=== PATIENT | male | born 1995 | race Caucasian/White ===

== ENCOUNTER → 2016-09-07 | Outpatient (CLI) | payer BC | LOC: RAD 10:14 | PROVIDERS: ATTEND Physician Assistant | DX: R51 Headache (principal) | CPT/HCPCS: 70450 ==

== ENCOUNTER 2017-02-12 00:01 | Emergency (ER) | payer BC, OTHER ==
[2017-02-12 00:17] VITALS: BP 133/64
[2017-02-12] MEDS ORDERED: FAMOTIDINE 20 MG TABLET PO ONE (01:08)
[2017-02-12] MEDS ORDERED: DIPHENHYDRAMINE HCL 50 MG CAPSULE PO ONE (01:08)
--- NOTE | 2017-02-12 01:10 | ER Document Report ---
HPI - HPI Patient complains to provider of: pruritic rash Onset: This evening Onset/Duration: Sudden, Waxing and waning Quality of pain: No pain Pain Level: 1 Context: 21 yo male with pruritic rash since last evening. fading. Doens't know what caused it.Did not take any benadryl. Associated Symptoms: None Exacerbated by: Denies Relieved by: Denies - ROS ROS below otherwise negative: Yes Systems Reviewed and Negative: Yes All other systems reviewed and negative - DERM Skin Color: Other Skin Problems: Rash - NURSING COMMENTS Comment: pt c/c rash started on abd , it is itching, has spread to hand arms and legs Past Medical History - General Information source: Patient - Social History Smoking Status: Never Smoker Cigarette use (# per day): No Chew tobacco use (# tins/day): No Frequency of alcohol use: Social Family History: Reviewed & Not Pertinent Patient has suicidal ideation: No Patient has homicidal ideation: No Pulmonary Medical History: Reports: Hx Asthma Denies: Hx Tuberculosis Neurological Medical History: Denies: Hx Seizures Renal/ Medical History: Denies: Hx Peritoneal Dialysis Past Surgical History: Reports: Hx Appendectomy. Denies: Hx Pacemaker - Immunizations Immunizations up to date: Yes Hx Diphtheria, Pertussis, Tetanus Vaccination: Yes Vertical Provider Document - CONSTITUTIONAL Agree With Documented VS: Yes Exam Limitations: No Limitations General Appearance: No Apparent Distress - INFECTION CONTROL TRAVEL OUTSIDE OF THE [place] IN LAST 30 DAYS: No - HEENT HEENT: Normal ENT Exam - NECK Neck: Supple - RESPIRATORY Respiratory: Breath Sounds Normal, No Respiratory Distress O2 Sat by Pulse Oximetry: 98 - CARDIOVASCULAR Cardiovascular: Regular Rate, Regular Rhythm - GI/ABDOMEN Gastrointestinal: Abdomen Soft - MUSCULOSKELETAL/EXTREMETIES Musculoskeletal/Extremeties: MAEW, FROM - NEURO Level of Consciousness: Awake, Alert - DERM Integumentary: Rash - flat uritcaria, lower abd, lateral thighs, forearms Course - Vital Signs Vital signs: Temp Pulse Resp BP Pulse Ox 97.7 F 60 20 133/64 H 98 02/12/17 00:14 02/12/17 00:14 02/12/17 00:14 02/12/17 00:14 02/12/17 00:14 Discharge - Discharge Clinical Impression: uritcaria Condition: Good Disposition: HOME, SELF-CARE Instructions: Acid-Suppressing Medication ([facility]), Acute Urticaria ([facility]), Use of Diphenhydramine Additional Instructions: see shipping hand if persists, recurs take over the counter benadryl 25-50 mg every 4-6 hours for the rash, will make you sleepy take over the counter pepcid 20mg twice a day for a week to er if worsening symptoms Please complete the patient satisfaction survey if you get one, and return it.. If you do not receive a survey, then you can go to the [facility] website, [email or web address] and place your comments about your very good care. Thank you very much. It was a pleasure being your medical provider today. Referrals: CR SNYDER, DO [ACTIVE STAFF] - Follow up as needed
== END 2017-02-12 01:27 | disposition home or self-care (01) ==
LOC: ER 00:01
DX: L50.9 Urticaria, unspecified (principal); J45.909 Unspecified asthma, uncomplicated
CPT/HCPCS: 99282